=== PATIENT | female | born 1955 | race Caucasian/White ===

== ENCOUNTER 2024-10-09 13:39 | Emergency (ER) | payer MEDICARE, SELFPAY ==
[2024-10-09 13:44] VITALS: BP 145/79
--- NOTE | 2024-10-09 15:05 | ED.GENMED ---
History of Present Illness
General
Chief Complaint: Musculo-Skeletal Complaint
Time Seen by Provider: 10/09/24 14:43
History of Present Illness
History of Present Illness:
69-year-old female presents the emergency department for evaluation of right wrist injury sustained after mechanical fall on the ice today. Fell onto outstretched hand. No distal paresthesias.
Past History
Past History
ED Past Surgical History: Cholecystectomy and Other (Hernia repair)
Social History
Tobacco: Non-smoker
Living: with family
Review of Systems
Review of Systems
Allergies reviewed?: Yes
All Other Systems: ROS reviewed and negative except as documented in HPI and ROS
Phy Exam
Physical Exam
Physical Exam:
GEN: Well appearing, NAD, WDWN
HEENT: Oral mucosa moist, no scleral icterus
Cardiac: Regular rate
Lung: No respiratory distress, no tachypnea
MSK: Diffuse swelling and minor deformity to the right wrist, right radial pulses strong, distal sensation normal, no elbow tenderness
Skin: Good color, no pallor or jaundice, no rashes
Neuro: AO x3, moves all extremities freely
Psych: Calm, cooperative
Course
Orders/Labs/Results
Orders:
Orders
10/09/24 13:45
CR Wrist - Right Min 3 Views Urgent
Comment:
Reason For Exam: injury, pain
Vital Signs
Initial and Last Documented VS:
Initial Vital Signs
Temp Pulse Resp BP Pulse Ox
98.7 F 70 16 145/79 99
10/09/24 13:44 10/09/24 13:44 10/09/24 13:44 10/09/24 13:44 10/09/24 13:44
Last Documented Vital Signs
Temp Pulse Resp BP Pulse Ox
98.7 F 70 16 145/79 99
10/09/24 13:44 10/09/24 13:44 10/09/24 13:44 10/09/24 13:44 10/09/24 13:44
Procedures
Splinting/Sling Placement
Right Wrist:
Procedure completed by: Ronan Galvez PA-C
Pre-splint extermity exam: neurovascular intact
Type of splint: sugar-tong
Splint material: fiberglass
Type of sling: sling fitted
MDM/Problems Addressed
MDM/Problems Addressed:
Sugar-tong splint applied, outpatient orthopedic follow-up advised
*Critical Care Note
Total Time (30-74mins, 75-104mins- exclusive of procedures): Not Applicable
ED Attending Note
-
Portions of this chart may have been created with voice recognition software.� Occasional wrong word or��sound alike� substitutions may have occurred due to the inherent limitations of voice recognition software.
Discharge Plan
Departure
Patient Disposition: Home (Routine Discharge)
Date of Disposition: 10/09/24
Time of Disposition: 15:08
Patient with high blood pressure during this ER visit?: No
Discharge Problem:
Distal radius fracture, right
Instructions: Wrist Fracture (DC)
Prescriptions:
No Action
cephalexin 500 MG capsule
500 mg PO QID Qty: 40 0RF
cefpodoxime 200 mg tablet
200 mg PO Q12H Qty: 20 0RF
Referrals:
Maine Hahn PA-C [Family Provider] -
Compa Landon MD [Active] -
Interventions
Interventions:
*Risk Screen - Suicide Last Done: 10/09/24 13:44
*General Assessment Last Done: 10/09/24 13:44
*Neglect/Abuse Screening Last Done: 10/09/24 14:58
*ED COVID-19 Vaccine History Last Done: 10/09/24 13:44
*Nursing Disposition Last Done: 10/09/24 15:18
ED-Musculoskeletal Assessment Last Done: 10/09/24 14:58
Discharge Date and Time
Discharge Date/Time: 10/09/24 15:19
Print Language: [id number]
== END 2024-10-09 15:19 | disposition home or self-care (01) ==
LOC: EMR 13:39
PROVIDERS: EMERGENCY PHYSICIAN Emergency Medicine; FAMILY PHYSICIAN Physician Assistant Medical
DX: S52.591A Other fractures of lower end of right radius, initial encounter for closed fracture (principal); W00.0XXA Fall on same level due to ice and snow, initial encounter; Z90.49 Acquired absence of other specified parts of digestive tract
CPT/HCPCS: 29125; 99283; 73110